=== PATIENT | male | born 1985 | race Caucasian/White ===

== ENCOUNTER 2024-05-08 07:22 | Inpatient (IN) | payer OTHER ==
[~2024-05-08] VITALS: Ht 188 cm; Wt 109.3 kg
[2024-05-08 07:32] VITALS: BP 144/99
[2024-05-08] MEDS ORDERED: SODIUM CHLORIDE 0.9% 1,000 ML IV ONE ×2 (07:40→09:40)
[2024-05-08] MEDS ORDERED: Ondansetron Hydrochloride 4 MG/2 ML VIAL IV ONE (07:50)
[2024-05-08 08:05] LABS: BASO % 0.1 % (0.0-1.0); MEAN CORPUSCULAR HGB 28.4 pg (27.0-31.0); MEAN CORPUSCULAR HGB CONC 33.1 g/dl (33.0-37.0); MEAN PLATELET VOLUME 10.6 fl (9.6-12.3); MONO # 1.1 10*3/uL (0.1-1.0); MONO % 8.9 % (3.0-9.0); NEUT # 10.4 10*3/uL (2.3-7.9); NEUT % 83.4 % (47.0-73.0); PLATELET COUNT AUTOMATED 319 10*3/uL (130-400); RED CELL DISTRI WIDTH 11.8 % (0-14.5); WHITE BLOOD COUNT 12.5 10*3/uL (4.8-10.8)
[2024-05-08 08:24] LABS: BUN 16 mg/dl (9-23); CHLORIDE 91 mmol/L (98-107); POTASSIUM 4.3 mmol/L (3.4-5.1)
[2024-05-08] MEDS ORDERED: INSULIN REGULAR, HUMAN 1 UNIT/0.01 ML IV ONE (09:15)
[2024-05-08] MEDS ORDERED: Pantoprazole Sodium 40 MG VIAL IV ONE (09:25)
[2024-05-08] MEDS ORDERED: BISACODYL 10 MG SUPP R PRN (09:30)
[2024-05-08] MEDS ORDERED: ACETAMINOPHEN 650 MG SUPP R PRN (09:30)
[2024-05-08] MEDS ORDERED: Ondansetron Hydrochloride 4 MG/2 ML VIAL IV PRN (09:30)
[2024-05-08] MEDS ORDERED: MORPHINE Sulfate 2 MG/ML SYR IV PRN (09:30)
[2024-05-08] MEDS ORDERED: INSULIN REGULAR IN 0.9 % NACL 100 ML IV SCH (09:35)
[2024-05-08] MEDS ORDERED: Zestril,Prinivi40 MG PO (09:59)
[2024-05-08] MEDS ORDERED: Enoxaparin Sodium 40 MG/0.4 ML SYR SC SCH (10:00)
[2024-05-08] MEDS ORDERED: ESCITALOPRAM OX20 MG PO (10:04)
[2024-05-08] MEDS ORDERED: TOUJEO MAX300 UNIT/1 SQ (10:05)
[2024-05-08] MEDS ORDERED: AMOXICILLIN500 M2 PO (10:05)
[2024-05-08 11:42] LABS: BILIRUBIN Negative (Negative); BLOOD Negative (Negative); CLARITY Clear (Clear); COLOR Yellow (Yellow); GLUCOSE 3+ (Negative); KETONE 4+ (Negative); LEUKO ESTERASE Negative (Negative); NITRITE Negative (Negative); SPECIFIC GRAVITY >= 1.030 (1.001-1.030); UROBILINOGEN 0.2 E.U./dl (0.0-1.0)
[2024-05-08 12:02] VITALS: BP 168/106
[2024-05-08 12:10] VITALS: BP 184/127
[2024-05-08 12:13] LABS: BUN 13 mg/dl (9-23); CHLORIDE 96 mmol/L (98-107); POTASSIUM 4.7 mmol/L (3.4-5.1)
[2024-05-08 12:15] LABS: EPITHELIAL CELLS 0-2; RBC 0-2 rbc/hpf (0-2); WBC 0-2 wbc/hpf (0-5)
[2024-05-08 12:16] LABS: BACTERIA TRACE; MUCOUS 2+
[2024-05-08] MEDS ORDERED: DIAZEPAM 10 MG/2 ML SYR IV ONE (13:20)
[2024-05-08] MEDS ORDERED: DEXTROSE 5% SALINE 0.45% 1,000 ML IV SCH (15:20)
[2024-05-08] MEDS ORDERED: Ketorolac Tromethamine 30 MG/ML VIAL IV ONE (15:40)
[2024-05-08] MEDS ORDERED: LISINOPRIL 40 MG TAB PO SCH (15:45)
[2024-05-08 16:00] VITALS: BP 184/115
[2024-05-08] MEDS ORDERED: POTASSIUM CHLORIDE 20 MEQ/100 ML BAG IV PRN (16:25)
[2024-05-08] MEDS ORDERED: POTASSIUM CHLORIDE 20 MEQ TAB PO PRN (16:25)
[2024-05-08 17:25] LABS: BUN 16 mg/dl (9-23); CHLORIDE 102 mmol/L (98-107); POTASSIUM 4.7 mmol/L (3.4-5.1)
[2024-05-08 20:00] VITALS: BP 155/96
[2024-05-08] MEDS ORDERED: Ampicillin Sodium/Sulbactam 3 GM in SODIUM CHLORIDE 0.9% 100 ML IV SCH (21:00)
[2024-05-08 22:21] LABS: BUN 13 mg/dl (9-23); CHLORIDE 105 mmol/L (98-107); POTASSIUM 4.3 mmol/L (3.4-5.1)
[2024-05-09] VITALS (8 sets, daily range): BP systolic 129–180; BP diastolic 74–110
[2024-05-09 02:58] LABS: BUN 12 mg/dl (9-23); CHLORIDE 106 mmol/L (98-107); POTASSIUM 4.2 mmol/L (3.4-5.1)
[2024-05-09 06:23] LABS: BASO % 0.2 % (0.0-1.0); HEMATOCRIT 42.5 % (42.0-52.0); MEAN CORPUSCULAR HGB 28.3 pg (27.0-31.0); MEAN CORPUSCULAR HGB CONC 32.9 g/dl (33.0-37.0); MEAN PLATELET VOLUME 11.2 fl (9.6-12.3); MONO # 0.7 10*3/uL (0.1-1.0); MONO % 12.4 % (3.0-9.0); NEUT # 3.8 10*3/uL (2.3-7.9); NEUT % 72.8 % (47.0-73.0); RED BLOOD COUNT 4.94 10*6/uL (4.50-5.90); RED CELL DISTRI WIDTH 11.9 % (0-14.5); WHITE BLOOD COUNT 5.3 10*3/uL (4.8-10.8)
[2024-05-09 06:24] LABS: PLATELET COUNT AUTOMATED 207 10*3/uL (130-400)
[2024-05-09 06:29] LABS: ALKALINE PHOSPHATASE 113 U/L (46-116); BUN 12 mg/dl (9-23); CHLORIDE 102 mmol/L (98-107); CHOLESTEROL 191 mg/dL (<200); LDL CHOLESTEROL 127 mg/dL (9-159); POTASSIUM 3.4 mmol/L (3.4-5.1); SGPT/ALT 18 U/L (5-49); TOTAL PROTEIN 7.3 gm/dL (6.0-8.0); TRIGLYCERIDES 133 mg/dl (<150)
[2024-05-09 06:34] LABS: ACT PARTIAL THROMBO TIME 30.2 SECONDS (20.0-32.1)
[2024-05-09] MEDS ORDERED: Insulin Glargine, Recombinan 1 UNIT/0.01 ML SC ONE ×4 (07:00→20:05)
[2024-05-09] MEDS ORDERED: ACETAMINOPHEN 325 MG TAB PO PRN (08:25)
[2024-05-09] MEDS ORDERED: ESCITALOPRAM OXALATE 10 MG TAB PO SCH (10:00)
[2024-05-09 12:16] LABS: BUN 8 mg/dl (9-23); CHLORIDE 102 mmol/L (98-107); POTASSIUM 3.1 mmol/L (3.4-5.1)
[2024-05-09] MEDS ORDERED: Phosphorus/Potassium 1.45 GM PACKET PO SCH (16:30)
[2024-05-09] MEDS ORDERED: Labetalol Hydrochloride 20 MG/4 ML SYR IV ONE ×2 (17:20→22:55)
[2024-05-09] MEDS ORDERED: Oseltamivir Phosphate 75 MG CAP PO SCH (22:00)
[2024-05-09] MEDS ORDERED: Amoxicillin/Clavulanate Pota 875 MG TAB PO SCH (22:00)
[2024-05-09] MEDS ORDERED: DEXTROSE 10 % IN WATER 250 ML IV PRN (22:10)
[2024-05-10] VITALS: BP 152/90
[2024-05-10 04:00] VITALS: BP 167/103
[2024-05-10 05:07] LABS: BUN < 5 mg/dl (9-23); CHLORIDE 99 mmol/L (98-107); POTASSIUM 3.6 mmol/L (3.4-5.1)
[2024-05-10 06:15] LABS: BASO % 0.2 % (0.0-1.0); HEMATOCRIT 39.7 % (42.0-52.0); MEAN CELL VOLUME 85.6 fl (80.0-94.0); MEAN CORPUSCULAR HGB 28.4 pg (27.0-31.0); MEAN CORPUSCULAR HGB CONC 33.2 g/dl (33.0-37.0); MEAN PLATELET VOLUME 12.2 fl (9.6-12.3); MONO # 0.6 10*3/uL (0.1-1.0); MONO % 13.9 % (3.0-9.0); NEUT # 2.5 10*3/uL (2.3-7.9); PLATELET COUNT AUTOMATED 149 10*3/uL (130-400); RED BLOOD COUNT 4.64 10*6/uL (4.50-5.90); RED CELL DISTRI WIDTH 11.8 % (0-14.5); WHITE BLOOD COUNT 4.3 10*3/uL (4.8-10.8)
[2024-05-10] MEDS ORDERED: INSULIN LISPRO 1 UNIT/0.01 ML SQ SCH (07:30)
[2024-05-10 08:00] VITALS: BP 145/99
[2024-05-10] MEDS ORDERED: SODIUM CHLORIDE 0.9% 1,000 ML IV ONE ×2 (08:10→08:44)
[2024-05-10] MEDS ORDERED: Oseltamivir Phosphate 30 MG CAP PO SCH (10:00)
[2024-05-10] MEDS ORDERED: TAMIFLU 75MG CA75 MG PO ×2 (11:47→15:21)
[2024-05-10] MEDS ORDERED: AMOX-CLAV 875-1 EACH PO ×2 (11:47→15:21)
[2024-05-10] MEDS ORDERED: TOUJEO MAX300 UNIT/1 SQ ×2 (11:47→15:21)
[2024-05-10 12:00] VITALS: BP 162/107
[2024-05-10] MEDS ORDERED: HUMALOG100 UNIT/2 SC (12:01)
[2024-05-10] MEDS ORDERED: HUMALOG KW200 UNIT/1 SQ ×3 (12:03→15:21)
[2024-05-10] MEDS ORDERED: Ondansetron4 MG PO ×2 (15:08→15:21)
[2024-05-10] MEDS ORDERED: Insulin Glargine, Recombinan 1 UNIT/0.01 ML SC SCH (22:00)
== END 2024-05-10 14:45 | disposition home or self-care (01) | DRG 871 ==
LOC: ED 07:22 → ICCU 09:29 → EDHOLD 09:29 → ICCU 11:40
PROVIDERS: Internal Medicine; Student in an Organized Health Care Education/Training Program; ADMIT Internal Medicine; ATTEND Internal Medicine
DX: A41.89 Other specified sepsis (principal); E10.10 Type 1 diabetes mellitus with ketoacidosis without coma; E87.1 Hypo-osmolality and hyponatremia; I10 Essential (primary) hypertension; J10.1 Influenza due to other identified influenza virus with other respiratory manifestations; Z79.4 Long term (current) use of insulin; Z80.8 Family history of malignant neoplasm of other organs or systems